=== PATIENT | male | born 1990 | race Caucasian/White ===

== ENCOUNTER 2017-04-17 01:47 | Emergency (ER) | payer OTHER ==
[2017-04-17 01:56] VITALS: RESP 16
[2017-04-17] MEDS ORDERED: methylPREDNISolone SOD SUCCI 125 MG/2 ML VIAL IM ONE (03:48)
[2017-04-17] MEDS ORDERED: COLCHICINE 0.6 MG TAB PO STA (03:52)
--- NOTE | 2017-04-17 03:53 | ED ---
Extremity Problem HPI - General Chief complaint: Extremity Problem,Nontraumatic Stated complaint: foot pain Time Seen by Provider: 04/17/17 02:48 Source: patient, RN notes reviewed Mode of arrival: wheelchair Limitations: no limitations - History of Present Illness Initial comments: Patient is a 26-year-old male presents emergency room for evaluation of right great toe pain. 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 Patient states his feet usually cause him pain. Patient states during the day yesterday began having increasing pain at his right MTP joint of his foot. Patient states it appears swollen and red. Patient denies chills. Patient denies pain radiating up his foot. Patient denies any foot swelling or redness. Patient does admit to alcohol use. Patient denies any changes in diet. Patient denies history of gout. Patient denies any significant injury to his great toe. - Related Data Home Medications Medication Instructions Recorded Confirmed Albuterol Sulfate [Ventolin HFA] 2 puff INHALATION RT-Q6H PRN 06/23/16 06/29/16 Previous Rx's Medication Instructions Recorded Azithromycin [Zithromax Z-pack] 250 mg PO DIRECTED #6 tab 06/29/16 Albuterol Inhaler [Ventolin Hfa 1 - 2 puff INHALATION Q6HR PRN #1 07/02/16 Inhaler] inhaler Acetaminophen with Codeine 1 tab PO Q4H PRN #12 tab 04/17/17 [Tylenol w/codeine #3] Colchicine [Colcrys] 0.6 mg PO DAILY #10 tablet 04/17/17 Allergies Allergy/AdvReac Type Severity Reaction Status Date / Time venom-honey bee Allergy Swelling Verified 04/17/17 01:56 [bee venom (honey bee)] Review of Systems ROS Statement: Those systems with pertinent positive or pertinent negative responses have been documented in the HPI. ROS Other: All systems not noted in ROS Statement are negative. Past Medical History Past Medical History: No Reported History, Asthma Additional Past Medical History / Comment(s): Migraines; Dizziness History of Any Multi-Drug Resistant Organisms: None Reported Past Surgical History: No Surgical Hx Reported Past Psychological History: No Psychological Hx Reported Smoking Status: Current every day smoker Past Alcohol Use History: None Reported, Occasional Past Drug Use History: None Reported General Exam - General Exam Comments Initial Comments: sitting in exam room, no acute distress. Limitations: no limitations General appearance: alert, in no apparent distress Head exam: Present: atraumatic, normocephalic, normal inspection Eye exam: Present: normal appearance ENT exam: Present: normal exam Neck exam: Present: normal inspection Respiratory exam: Absent: respiratory distress Right Foot/Toe exam: Present: tenderness (swelling and tenderness on palpating over her MTP joint.) Neurovascular tendon exam: Present: no vascular compromise. Absent: pulse deficit (2+ dorsal pedal and posterior tibial pulses), abnormal cap refill ( capillary refill less than 2 seconds) Back exam: Present: normal inspection Neurological exam: Present: alert, oriented X3, CN II-XII intact Psychiatric exam: Present: normal affect, normal mood Skin exam: Present: warm, dry, intact, normal color. Absent: rash Course Vital Signs 04/17/17 04/17/17 01:52 04:23 Temperature 100.2 F H 97.6 F Pulse Rate 69 67 Respiratory 16 16 Rate Blood Pressure 146/79 123/62 O2 Sat by Pulse 98 98 Oximetry Medical Decision Making - Medical Decision Making Patient is a 26-year-old male presents emergency room for evaluation of right great toe pain. Symptoms consistent with gout. Patient be placed on colchicine and pain medications and advised to follow-up with either primary care provider or nitrocellulose operator. Patient states he understands everything that was discussed with him. Return parameters discussed. Case discussed Dr. Naqvi. 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 Please follow up with primary care provider in 1-2 days for reevaluation. If any new symptom arises or symptoms worsen, return to ER as soon as possible. Prescriptions: Acetaminophen with Codeine [Tylenol w/codeine #3] 1 tab PO Q4H PRN #12 tab PRN Reason: Pain Colchicine [Colcrys] 0.6 mg PO DAILY #10 tablet Referrals: None,Stated [Primary Care Provider] - 1-2 days Time of Disposition: 03:50
--- NOTE | 2017-04-17 04:17 | XR ---
PROCEDURE: FILM RIGHT FOOT HISTORY: 26-year-old male with right foot. COMPARISON: None TECHNIQUE: Frontal, lateral, and oblique views of the right foot were obtained. FINDINGS: Bony structures are intact. Joint spaces are preserved. Soft tissues are within normal limits. IMPRESSION: Unremarkable views of the right foot.
[2017-04-17 04:24] VITALS: BP 123/62; PULSE 67; TEMP 97.6
== END 2017-04-17 04:23 | disposition home or self-care (01) ==
LOC: EC 01:47
DX: M10.9 Gout, unspecified (principal); F17.200 Nicotine dependence, unspecified, uncomplicated; Z91.030 Bee allergy status
CPT/HCPCS: 73630; 99283; 96372; J2930

== ENCOUNTER 2017-07-17 16:48 | Emergency (ER) | payer OTHER ==
[2017-07-17] MEDS ORDERED: IPRATROPIUM-ALBUTEROL 3 ML NEB INHALATION STA (18:29)
[2017-07-17] MEDS ORDERED: DEXAMETHASONE SOD PHOSPHATE 10 MG/ML 1 ML VIAL IM STA (18:29)
--- NOTE | 2017-07-17 18:37 | ED ---
General Adult HPI - General Chief complaint: Upper Respiratory Infection Stated complaint: chest pain/dizziness Time Seen by Provider: 07/17/17 18:11 Source: patient Mode of arrival: ambulatory Limitations: no limitations - History of Present Illness Initial comments: Adonis is a 26-year-old male with a past medical history of asthma who presents to the emergency department for evaluation of sinus congestion, cough and wheezing. Patient reports that for the past 2 days he's been experiencing sinus congestion, runny and stuffy nose, sore throat, mildly productive cough and wheezing. He reports that he no longer has an albuterol inhaler because he has not seen a doctor in a number of years. He reports he feels similar to having asthma attacks in the past. Patient states that his mother has always made his doctor's appointments, however she and he stated he does not know how to get a doctor's appointment or get prescription so he came to the emergency department. Symptoms began 2 days ago. He can't identify any exacerbating or relieving factors to the congestion though he does feel short of breath with activity which improved somewhat with rest however this has been progressively worsening over 2 days. He has not tried any [id number] medications or prescriptions at home. He describes his cough is productive of yellowish-green sputum, he has no history of pneumonia in the past. Patient has no known cardiac history, no history of hypertension. He is currently a smoker. - Related Data Previous Rx's Medication Instructions Recorded Albuterol Inhaler [Ventolin Hfa 1 - 2 puff INHALATION Q6HR PRN #1 07/17/17 Inhaler] inhaler methylPREDNISolone Dose Pack 4 mg PO DIRECTED #21 package 07/17/17 [Medrol Dose Pack] Allergies Allergy/AdvReac Type Severity Reaction Status Date / Time venom-honey bee Allergy Swelling Verified 07/17/17 19:26 [bee venom (honey bee)] Review of Systems ROS Statement: Those systems with pertinent positive or pertinent negative responses have been documented in the HPI. ROS Other: All systems not noted in ROS Statement are negative. Constitutional: Denies: fever, chills Eyes: Denies: vision change ENT: Reports: ear pain, throat pain, congestion. Denies: hearing loss, epistaxis Respiratory: Reports: cough, dyspnea, wheezes Cardiovascular: Reports: dyspnea on exertion. Denies: palpitations Endocrine: Reports: fatigue Gastrointestinal: Denies: abdominal pain, nausea, vomiting Genitourinary: Denies: urgency, dysuria Musculoskeletal: Denies: back pain Skin: Denies: rash Neurological: Denies: headache, weakness Psychiatric: Denies: anxiety, depression Hematological/Lymphatic: Denies: easy bleeding, easy bruising Past Medical History Past Medical History: No Reported History, Asthma Additional Past Medical History / Comment(s): Migraines; Dizziness History of Any Multi-Drug Resistant Organisms: None Reported Past Surgical History: No Surgical Hx Reported Past Psychological History: No Psychological Hx Reported Smoking Status: Current every day smoker Past Alcohol Use History: None Reported, Occasional Past Drug Use History: None Reported General Exam Limitations: no limitations General appearance: alert, in no apparent distress Head exam: Present: atraumatic, normocephalic Eye exam: Present: normal appearance, PERRL. Absent: conjunctival injection ENT exam: Present: normal exam, normal oropharynx, mucous membranes moist, TM's normal bilaterally, normal external ear exam Neck exam: Present: normal inspection, full ROM. Absent: tenderness, meningismus, lymphadenopathy, thyromegaly Respiratory exam: Present: wheezes Cardiovascular Exam: Present: regular rate, normal rhythm. Absent: irregular rhythm, systolic murmur, diastolic murmur GI/Abdominal exam: Present: soft. Absent: distended, tenderness Rectal exam: Present: deferred Extremities exam: Present: normal inspection, full ROM, normal capillary refill. Absent: tenderness, pedal edema, joint swelling, calf tenderness Back exam: Present: normal inspection Course Vital Signs 07/17/17 07/17/17 07/17/17 17:17 18:54 19:06 Temperature 97.3 F L Pulse Rate 78 72 76 Respiratory 18 Rate Blood Pressure 108/59 O2 Sat by Pulse 97 Oximetry 07/17/17 07/17/17 19:09 20:16 Temperature 98.3 F 98.2 F Pulse Rate 89 62 Respiratory 20 16 Rate Blood Pressure 131/75 O2 Sat by Pulse 97 98 Oximetry EKG Findings - EKG Comments: EKG Findings:: EKG at 1721 - EKG rate 72, rhythm is sinus, there is no acute ST elevations or depressions. Noted to have large P waves as well as S1 every 3 T3 pattern consistent with pulmonary disease. No acute ischemia or infarction. Medical Decision Making - Medical Decision Making Patient was seen and examined Patient laying comfortably in the ER bed upon initial evaluation vital signs were reviewed, no SIRS criteria History and physical exam are concerning for asthma exacerbation likely related to a viral URI Patient with no exertional chest pain, he does have pleuritic chest pain upon coughing DuoNeb was ordered for wheezing EKG and 2 view chest x-ray were ordered to evaluate for possible pneumonia EKG concerning for acute right heart strain versus chronic lung disease will pursue a full workup Chest x-ray with no acute findings Labs reveal a normal d-dimer, negative troponin, normal BNP CBC and BMP unremarkable All results were discussed with patient. I advised the patient that he likely has a viral upper respiratory tract infection which is exacerbating his chronic asthma. I will discharge him home with a albuterol MDI as well as referral to primary care physician so that he can establish care. - Lab Data Result diagrams: 07/17/17 19:05 07/17/17 19:05 Lab Results 07/17/17 07/17/17 07/17/17 Range/Units 19:05 19:05 19:05 WBC 6.6 (3.8-10.6) k/uL RBC 5.04 (4.30-5.90) m/uL Hgb 14.9 (13.0-17.5) gm/dL Hct 43.8 (39.0-53.0) % MCV 86.8 (80.0-100.0) fL MCH 29.5 (25.0-35.0) pg MCHC 34.0 (31.0-37.0) g/dL RDW 14.2 (11.5-15.5) % Plt Count 204 (150-450) k/uL Neutrophils % 58 % Lymphocytes % 33 % Monocytes % 5 % Eosinophils % 2 % Basophils % 1 % Neutrophils # 3.8 (1.3-7.7) k/uL Lymphocytes # 2.2 (1.0-4.8) k/uL Monocytes # 0.4 (0-1.0) k/uL Eosinophils # 0.1 (0-0.7) k/uL Basophils # 0.0 (0-0.2) k/uL PT 11.0 (9.0-12.0) sec INR 1.1 (<1.2) APTT 26.5 (22.0-30.0) sec D-Dimer <0.17 (<0.60) mg/L FEU Sodium 140 (137-145) mmol/L Potassium 4.5 (3.5-5.1) mmol/L Chloride 104 (98-107) mmol/L Carbon Dioxide 25 (22-30) mmol/L Anion Gap 11 mmol/L BUN 16 (9-20) mg/dL Creatinine 0.97 (0.66-1.25) mg/dL Est GFR (MDRD) Af Amer >60 (>60 ml/min/1.73 sqM) Est GFR (MDRD) Non-Af >60 (>60 ml/min/1.73 sqM) Glucose 85 (74-99) mg/dL Calcium 10.0 (8.4-10.2) mg/dL Troponin I (0.000-0.034) ng/mL NT-Pro-B Natriuret Pep pg/mL 07/17/17 07/17/17 Range/Units 19:05 19:05 WBC (3.8-10.6) k/uL RBC (4.30-5.90) m/uL Hgb (13.0-17.5) gm/dL Hct (39.0-53.0) % MCV (80.0-100.0) fL MCH (25.0-35.0) pg MCHC (31.0-37.0) g/dL RDW (11.5-15.5) % Plt Count (150-450) k/uL Neutrophils % % Lymphocytes % % Monocytes % % Eosinophils % % Basophils % % Neutrophils # (1.3-7.7) k/uL Lymphocytes # (1.0-4.8) k/uL Monocytes # (0-1.0) k/uL Eosinophils # (0-0.7) k/uL Basophils # (0-0.2) k/uL PT (9.0-12.0) sec INR (<1.2) APTT (22.0-30.0) sec D-Dimer (<0.60) mg/L FEU Sodium (137-145) mmol/L Potassium (3.5-5.1) mmol/L Chloride (98-107) mmol/L Carbon Dioxide (22-30) mmol/L Anion Gap mmol/L BUN (9-20) mg/dL Creatinine (0.66-1.25) mg/dL Est GFR (MDRD) Af Amer (>60 ml/min/1.73 sqM) Est GFR (MDRD) Non-Af (>60 ml/min/1.73 sqM) Glucose (74-99) mg/dL Calcium (8.4-10.2) mg/dL Troponin I <0.012 (0.000-0.034) ng/mL NT-Pro-B Natriuret Pep 36 pg/mL Disposition Clinical Impression: URI (upper respiratory infection), Asthmatic bronchitis Disposition: HOME SELF-CARE Condition: Good Instructions: Upper Respiratory Infection (ED) Prescriptions: Albuterol Inhaler [Ventolin Hfa Inhaler] 1 - 2 puff INHALATION Q6HR PRN #1 inhaler PRN Reason: Bronchospasm methylPREDNISolone Dose Pack [Medrol Dose Pack] 4 mg PO DIRECTED #21 package Referrals: None,Stated [Primary Care Provider] - 1-2 days Josesito Urbano MD [REFERRING] - 1-2 days
[2017-07-17] MEDS ORDERED: SODIUM CHLORIDE 0.9% 1,000 ML IV STA (18:43)
--- NOTE | 2017-07-17 19:20 | XR ---
EXAMINATION TYPE: XR chest 2V DATE OF EXAM: 07/17/2017 COMPARISON: 07/01/2016 HISTORY: Chest pain TECHNIQUE: Frontal and lateral views of the chest are obtained. FINDINGS: There is no focal air space opacity. No evidence for pneumothorax. No pleural effusion. The cardiac silhouette size is within normal limits. The osseous structures are grossly intact. IMPRESSION: 1. No acute cardiopulmonary process.
[2017-07-17 19:28] LABS: Anion Gap 11 mmol/L; Blood Urea Nitrogen 16 mg/dL (9-20); Carbon Dioxide 25 mmol/L (22-30); Chloride 104 mmol/L (98-107); Glucose 85 mg/dL (74-99); Non-African American GFR(MDRD) >60 (>60 ml/min/1.73 sqM); Potassium 4.5 mmol/L (3.5-5.1); Sodium 140 mmol/L (137-145)
[2017-07-17 19:29] LABS: Basophils % (A) 1 %; CH 30.2; Eosinophils # (A) 0.1 k/uL (0-0.7); Eosinophils % (A) 2 %; HCT 43.8 % (39.0-53.0); HDW 2.45; HGB 14.9 gm/dL (13.0-17.5); Luc # (Auto) 0.08; Luc % (Auto) 1; Lymphocytes # (A) 2.2 k/uL (1.0-4.8); Lymphocytes % (A) 33 %; MCH 29.5 pg (25.0-35.0); MCV 86.8 fL (80.0-100.0); Mean Platelet Volume 7.5; Monocytes # (A) 0.4 k/uL (0-1.0); Monocytes % (A) 5 %; Neutrophils # (A) 3.8 k/uL (1.3-7.7); Neutrophils % (A) 58 %; RBC 5.04 m/uL (4.30-5.90); RDW 14.2 % (11.5-15.5); WBC 6.6 k/uL (3.8-10.6); WBC (Perox) 6.66
[2017-07-17 19:39] LABS: INR 1.1 (<1.2); Partial Thromboplastin Time 26.5 sec (22.0-30.0)
[2017-07-17 20:16] VITALS: RESP 16; TEMP 98.2
[2017-07-17 20:42] VITALS: BP 131/75; PULSE 62
== END 2017-07-17 20:42 | disposition home or self-care (01) ==
LOC: EC 16:48
DX: J45.909 Unspecified asthma, uncomplicated (principal); J06.9 Acute upper respiratory infection, unspecified; F17.200 Nicotine dependence, unspecified, uncomplicated; Z91.030 Bee allergy status
CPT/HCPCS: 36415; 94640; 93005; 85379; 83880; 80048; 84484; 85025; 85610; 85730; 71020; 99284; 96360; 96372; J1100

== ENCOUNTER 2018-07-30 22:27 | Emergency (ER) | payer OTHER ==
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
[2018-07-30] MEDS ORDERED: METOCLOPRAMIDE 5 MG/ML 2 ML VIAL IM STA (23:58)
[2018-07-30] MEDS ORDERED: KETOROLAC 30 MG/ML 1 ML VIAL IM STA (23:58)
[2018-07-30] MEDS ORDERED: diphenhydrAMINE 50 MG CAP PO STA (23:58)
--- NOTE | 2018-07-31 00:42 | XR ---
EXAMINATION TYPE: XR shoulder complete LT DATE OF EXAM: 07/31/2018 COMPARISON: NONE HISTORY: Shoulder pain TECHNIQUE: 3 views FINDINGS: I see no fracture nor dislocation. Joint spaces are normal. There are no pathologic calcifi cations. IMPRESSION: Negative left shoulder exam.
[2018-07-31 01:43] VITALS: BP 125/72; PULSE 76; RESP 16; TEMP 97.9
== END 2018-07-31 01:43 | disposition home or self-care (01) ==
LOC: EC 22:27
DX: H11.32 Conjunctival hemorrhage, left eye (principal); S46.912A Strain of unspecified muscle, fascia and tendon at shoulder and upper arm level, left arm, initial encounter; G43.909 Migraine, unspecified, not intractable, without status migrainosus; F17.200 Nicotine dependence, unspecified, uncomplicated; Z91.030 Bee allergy status; Z79.899 Other long term (current) drug therapy; W03.XXXA Other fall on same level due to collision with another person, initial encounter; W22.8XXA Striking against or struck by other objects, initial encounter
CPT/HCPCS: 73030; 99284; 96372 ×2; J2765; J1885

== ENCOUNTER → 2018-08-29 | Outpatient (CLI) | payer OTHER ==
--- NOTE | 2018-08-29 23:26 | MR ---
EXAMINATION TYPE: MR shoulder LT wo con DATE OF EXAM: 08/29/2018 COMPARISON: HISTORY: Left shoulder pain x2.5 months, painful to raise left arm over head TECHNIQUE: Multiplanar, multisequence imaging of the left shoulder is performed without contrast. FINDINGS: The subscapularis tendon is intact. Biceps tendon is intact. There is minute shoulder joint effusion. The glenoid karuna appear intact. Glenohumeral joint space is fairly normal. AC joint is intact. Ther e is no subacromial impingement. There is vertical defect through the supraspinatus tendon on the sag ittal images anteriorly and posteriorly. There is no retraction.. I see no bony destructive process. There is no evidence of a fracture. There is no evidence of a soft tissue mass. IMPRESSION: Small shoulder joint effusion. The sagittal images appear to show vertical tear and defects defects i n the supraspinatus tendon without any retraction.
== END ==
LOC: RADMRIMAIN 19:49
PROVIDERS: ATTEND Internal Medicine
DX: M25.421 Effusion, right elbow (principal)

== ENCOUNTER 2023-03-11 15:17 | Emergency (ER) | payer OTHER ==
[2023-03-11 15:31] VITALS: RESP 16
--- NOTE | 2023-03-11 16:53 | ED ---
Male Urogenital HPI - General Chief complaint: Urogenital Stated complaint: CHECKUP Time Seen by Provider: 03/11/23 16:17 Source: patient, RN notes reviewed Mode of arrival: ambulatory Limitations: no limitations - History of Present Illness Initial comments: This is a 32-year-old male who presents to the emergency department for HIV testing. States that his girlfriend's mother works as a nurse, and they got information that one of them may have HIV. Patient declines the need for any other STD testing. Denies any dysuria, discharge, pain, or lesions to the genitalia. To his knowledge, he has never been exposed to HIV. Denies any fevers, chills, sore throat, cough, dyspnea, chest pain, palpitations, abdominal pain, nausea, vomiting, diarrhea, back pain, or headaches. - Related Data Home Medications Medication Instructions Recorded Confirmed Acetaminophen [Tylenol] 100 mg PO Q4-6H PRN 07/30/18 07/30/18 Albuterol Inhaler [Ventolin Hfa 1 - 2 puff INHALATION RT-Q6H PRN 07/30/18 07/30/18 Inhaler] Ibuprofen [Motrin Ib] 600 mg PO Q6H PRN 07/30/18 07/30/18 Naphazoline HCl/Glycerin [Clear 1 drop BOTH EYES DAILY 07/30/18 07/30/18 Eyes Max Redness Rlf Drp] Previous Rx's Medication Instructions Recorded Ibuprofen [Motrin] 600 mg PO Q8HR PRN #30 tab 07/31/18 Allergies Allergy/AdvReac Type Severity Reaction Status Date / Time venom-honey bee Allergy Swelling Verified 07/30/18 22:40 [bee venom (honey bee)] Review of Systems ROS Statement: Those systems with pertinent positive or pertinent negative responses have been documented in the HPI. ROS Other: All systems not noted in ROS Statement are negative. Past Medical History Past Medical History: No Reported History, Asthma Additional Past Medical History / Comment(s): Migraines; Dizziness History of Any Multi-Drug Resistant Organisms: None Reported Past Surgical History: No Surgical Hx Reported Past Psychological History: No Psychological Hx Reported Past Alcohol Use History: None Reported, Occasional Past Drug Use History: None Reported General Exam Limitations: no limitations General appearance: alert, in no apparent distress Head exam: Present: atraumatic, normocephalic, normal inspection Respiratory exam: Present: normal lung sounds bilaterally. Absent: respiratory distress, wheezes, rales, rhonchi, stridor Cardiovascular Exam: Present: regular rate, normal rhythm, normal heart sounds. Absent: systolic murmur, diastolic murmur, rubs, gallop, clicks Neurological exam: Present: alert, oriented X3, CN II-XII intact Psychiatric exam: Present: normal affect, normal mood Skin exam: Present: warm, dry, intact, normal color. Absent: rash Course Vital Signs 03/11/23 03/11/23 15:30 17:58 Temperature 98.1 F 97.8 F Pulse Rate 95 92 Respiratory 16 16 Rate Blood Pressure 114/65 112/68 O2 Sat by Pulse 98 98 Oximetry Medical Decision Making - Medical Decision Making This is a 32-year-old male who presents to the emergency department for HIV testing. Was pt. sent in by a medical professional or institution? @ -No Did you speak to anyone other than the patient for history? @ -No Did you review nursing and triage notes? @ -Yes, and I agree, it is accurate with regards to the patient's symptoms. Were old charts reviewed? @ -No Differential Diagnosis? @ -Not applicable What testing was considered but not performed? (CT, X-rays, U/S, labs)? Why? @ -None What meds were considered but not given? Why? @ -None Did you discuss the management of the patient with other professionals? @ -No Did you reconcile home meds? @ -No Was smoking cessation discussed for >3mins.? @ -No Was critical care preformed (if so, how long)? @ -No Were there social determinants of health that impacted care today? How? (Homelessness, low income, unemployed, alcoholism, drug addiction, transportation, low edu. Level, literacy, decrease access to med. care, fdc, rehab)? @ -No Was there de-escalation of care discussed even if they declined? (Discuss DNR or withdrawal of care, Hospice)? @ -No What co-morbidities impacted this encounter? (DM, HTN, Smoking, COPD, CAD, Cancer, CVA, Hep., AIDS, mental health diagnosis, sleep apnea, morbid obesity)? @ -None Was patient admitted / discharged? @ -Discharged. HIV testing obtained per the patient's request. Advised that this will take a couple of days for the results to return. Patient declined the need for any additional STD testing. Recommended he and his girlfriend avoid sexual intercourse until results return. Undiagnosed new problem with uncertain prognosis? @ -None Drug Therapy requiring intensive monitoring for toxicity (Heparin, Nitro, Insulin, Cardizem)? @ -None Were any procedures done? @ -None Diagnosis/symptom? @ -Encounter for HIV testing Acute, or Chronic, or Acute on Chronic? @ -Acute Uncomplicated (without systemic symptoms) or Complicated (systemic symptoms)? @ -Uncomplicated Side effects of treatment? @ -None Exacerbation, Progression, or Severe Exacerbation] @ -Not applicable Poses a threat to life or bodily function? @ -No Return precautions reviewed in depth, the patient is instructed to return to the emergency department with any new, worsening, or concerning symptoms. Patient verbalized understanding. This case was discussed in detail with the attending ED physician, Dr. Ferrell. Presentation, findings, and treatment plan discussed in detail as well. Disposition Clinical Impression: Encounter for HIV (human immunodeficiency virus) test Disposition: HOME SELF-CARE Instructions (If sedation given, give patient instructions): Sexually Transmitted Diseases (ED) Additional Instructions: Return to the emergency department with any new, worsening, or concerning symptoms. It will take a couple of days to receive the results of the test. You will be contacted when the results return. Is patient prescribed a controlled substance at d/c from ED?: No Referrals: Josesito Urbano MD [REFERRING] - 1-2 days
[2023-03-11 18:00] VITALS: BP 112/68; PULSE 92; TEMP 97.8
[2023-03-12 16:35] LABS: HIV 2 AB Non-Reactive (Non-Reactive); HIV AB P24 Non-Reactive (Non-Reactive); HIV P24 AG Non-Reactive (Non-Reactive)
== END 2023-03-11 17:17 | disposition home or self-care (01) ==
LOC: EC 15:17
DX: Z11.4 Encounter for screening for human immunodeficiency virus [HIV] (principal); J45.909 Unspecified asthma, uncomplicated; Z79.899 Other long term (current) drug therapy; Z91.030 Bee allergy status
CPT/HCPCS: 36415; 87390

== ENCOUNTER 2023-08-09 12:37 | Inpatient (IN) | payer MEDICAID, OTHER ==
--- NOTE | 2023-08-09 13:08 | ED ---
Psych HPI - General Source: patient, RN notes reviewed Mode of arrival: ambulatory Limitations: no limitations - History of Present Illness MD Complaint: suicidal ideation <Simran Hayes - Last Filed: 08/09/23 13:06> - General Source: patient, RN notes reviewed Mode of arrival: ambulatory Limitations: no limitations <Artie Mac - Last Filed: 08/09/23 18:58> - General Chief Complaint: Psychiatric Symptoms Stated Complaint: Mental Health Time Seen by Provider: 08/09/23 13:06 - History of Present Illness Initial Comments: This is a 32 year old male who presents to the emergency department for psychiatric evaluation. Reports increasing depression with suicidal ideation and plan to overdose on medication. Denies any homicidal ideations. (Simran Hayes) Patient is a pleasant 32-year-old male presenting to the emergency department for mental health evaluation. Patient states ran out of medications around 8 days ago. Patient does have depression and anxiety. Patient did have thoughts of self-harm. No homicidal thoughts. No alcohol or street drugs. No new physical complaints. (Artie Mac) - Related Data Home Medications Medication Instructions Recorded Confirmed Albuterol Inhaler [Ventolin Hfa 1 - 2 puff INHALATION RT-Q6H PRN 07/30/18 08/09/23 Inhaler] FLUoxetine HCL [Prozac] 40 mg PO HS 08/09/23 08/09/23 OLANZapine [ZyPREXA] 15 mg PO HS 08/09/23 08/09/23 OLANZapine/FLUOXETINE HCL [Symbyax 1 cap PO HS 08/09/23 08/09/23 6-25 mg Capsule] hydrOXYzine pamoate [Vistaril] 25 - 50 mg PO TID PRN 08/09/23 08/09/23 traZODone HCL [Desyrel] 50 mg PO HS PRN 08/09/23 08/09/23 Allergies Allergy/AdvReac Type Severity Reaction Status Date / Time venom-honey bee Allergy Swelling Verified 08/09/23 14:40 [bee venom (honey bee)] Review of Systems ROS Other: All systems not noted in ROS Statement are negative. <Simran Hayes - Last Filed: 08/09/23 13:06> ROS Other: All systems not noted in ROS Statement are negative. Constitutional: Denies: fever Eyes: Denies: eye pain ENT: Denies: ear pain Respiratory: Denies: cough Cardiovascular: Denies: chest pain Endocrine: Denies: fatigue Gastrointestinal: Denies: abdominal pain Psychiatric: Reports: as per HPI, anxiety, depression <Artie Mac - Last Filed: 08/09/23 18:58> ROS Statement: Those systems with pertinent positive or pertinent negative responses have been documented in the HPI. Past Medical History Past Medical History: No Reported History, Asthma Additional Past Medical History / Comment(s): Migraines; Dizziness History of Any Multi-Drug Resistant Organisms: None Reported Past Surgical History: No Surgical Hx Reported Past Psychological History: No Psychological Hx Reported Past Alcohol Use History: None Reported, Occasional Past Drug Use History: None Reported <Simran Hayes - Last Filed: 08/09/23 13:06> General Exam <Simran Hayes - Last Filed: 08/09/23 13:06> Limitations: no limitations General appearance: alert, in no apparent distress, other (Patient rocking in the bed) Head exam: Present: atraumatic Eye exam: Present: normal appearance Neck exam: Present: normal inspection Respiratory exam: Present: normal lung sounds bilaterally Cardiovascular Exam: Present: regular rate, normal rhythm GI/Abdominal exam: Present: soft. Absent: tenderness Extremities exam: Present: normal inspection Neurological exam: Present: alert Psychiatric exam: Present: anxious Skin exam: Present: normal color <Artie Mac - Last Filed: 08/09/23 18:58> - General Exam Comments Initial Comments: Visual Physical Exam Vital signs reviewed General: Well-appearing, nontoxic, no acute distress. Head: Normocephalic, atraumatic Eyes: PERRLA, EOMI ENT: Airway patent Chest: Nonlabored breathing Skin: No visual rash, normal skin tone Neuro: Alert and oriented 3 Musculoskeletal: No gross abnormalities I performed the QuickNote portion of this chart. Signed Simran Hayes PA-C. (Simran Hayes) Course Vital Signs 08/09/23 13:05 Temperature 97.5 F L Pulse Rate 67 Respiratory 16 Rate Blood Pressure 105/68 O2 Sat by Pulse 99 Oximetry Medical Decision Making <Artie Mac Last Filed: 08/09/23 18:58> - Medical Decision Making Was pt. sent in by a medical professional or institution (Dr., PA, HAIRSPRING ASSEMBLER, urgent care, hospital, or correction...) When possible be specific @ -No Did you speak to anyone other than the patient for history (EMS, parent, family, police, friend...)? What history was obtained from this source @ -No Did you review nursing and triage notes (agree or disagree)? Why? @ -I reviewed and agree with nursing and triage notes Were old charts reviewed (outside hosp., previous admission, EMS record, old EKG, old radiological studies, urgent care reports/EKG's, correction records)? Report findings @ -No old charts were reviewed Differential Diagnosis (chest pain, altered mental status, abdominal pain women, abdominal pain men, vaginal bleeding, weakness, fever, dyspnea, syncope, headache, dizziness, GI bleed, back pain, seizure, CVA, palpatations, mental health, musculoskeletal)? @ -Differential Mental Health Depression, anxiety, bipolar, psychosis, schizophrenia, borderline personality, situational depression, adjustment disorder, behavioral disorder, brain tumor, malingering, substance abuse, encephalopathy, medication reaction, dementia, hypothyroidism, degenerative neurologic disorder, lupus.... This is not meant to be all-inclusive list EKG interpreted by me (3pts min.). @ -As above X-rays interpreted by me (1pt min.). @ -None done CT interpreted by me (1pt min.). @ -None done U/S interpreted by me (1pt. min.). @ -None done What testing was considered but not performed or refused? (CT, X-rays, U/S, labs)? Why? @ -None What meds were considered but not given or refused? Why? @ -None Did you discuss the management of the patient with other professionals (professionals i.e. MALAIKA Ling, HAIRSPRING ASSEMBLER, lab, RT, psych nurse, social research assistant, oracle sql developer, teacher, surveillance officer, gearcase assembler)? Give summary @ -Patient was seen by mental health services with plans for admission. Was smoking cessation discussed for >3mins.? @ -No Was critical care preformed (if so, how long)? @ -No Were there social determinants of health that impacted care today? How? (Homelessness, low income, unemployed, alcoholism, drug addiction, transportation, low edu. Level, literacy, decrease access to med. care, [facility], rehab)? @ -No Was there de-escalation of care discussed even if they declined (Discuss DNR or withdrawal of care, Hospice)? DNR status @ -No What co-morbidities impacted this encounter? (DM, HTN, Smoking, COPD, CAD, Cancer, CVA, ARF, Chemo, Hep., AIDS, mental health diagnosis, sleep apnea, morbid obesity)? @ -None Was patient admitted / discharged? Hospital course, mention meds given and route, prescriptions, significant lab abnormalities, going to OR and other pertinent info. @ -Patient will be admitted for mental health services Undiagnosed new problem with uncertain prognosis? @ -No Drug Therapy requiring intensive monitoring for toxicity (Heparin, Nitro, Insulin, Cardizem)? @ -No Were any procedures done? @ -No Diagnosis/symptom? @ -Depression, suicidal ideation Acute, or Chronic, or Acute on Chronic? @ -Acute, acute Uncomplicated (without systemic symptoms) or Complicated (systemic symptoms)? @ -default Side effects of treatment? @ -No Exacerbation, Progression, or Severe Exacerbation? @ -No Poses a threat to life or bodily function? How? (Chest pain, [place], [place], pneumonia, PE, COPD, DKA, ARF, appy, cholecystitis, CVA, Diverticulitis, Homicidal, Suicidal, threat to staff... and all critical care pts) @ -No (Artie Mac) - Lab Data Lab Results 08/09/23 08/09/23 Range/Units 15:16 18:32 Urine Opiates Screen Not Detected (NotDetected) Ur Oxycodone Screen Not Detected (NotDetected) Urine Methadone Screen Not Detected (NotDetected) Ur Propoxyphene Screen Not Detected (NotDetected) Ur Barbiturates Screen Not Detected (NotDetected) U Tricyclic Antidepress Not Detected (NotDetected) Ur Phencyclidine Scrn Not Detected (NotDetected) Ur Amphetamines Screen Not Detected (NotDetected) U Methamphetamines Scrn Not Detected (NotDetected) U Benzodiazepines Scrn Not Detected (NotDetected) Urine Cocaine Screen Not Detected (NotDetected) U Marijuana (THC) Screen Detected H (NotDetected) Coronavirus (PCR) Not Detected (Not Detectd) Disposition <Simran Hayes - Last Filed: 08/09/23 13:06> Is patient prescribed a controlled substance at d/c from ED?: No Time of Disposition: 18:58 <Artie Mac - Last Filed: 08/09/23 18:58> Clinical Impression: Depression, Suicidal ideation Disposition: TRANSFER TO PSYCH HOSP/UNIT Referrals: None,Stated [Primary Care Provider] - 1-2 days
[2023-08-09 16:08] LABS: Cocaine Screen,Urine Not Detected (NotDetected); Phencyclidine Screen,Urine Not Detected (NotDetected); Urn Cannabinoid Scrn Detected (NotDetected)
[2023-08-09 16:09] LABS: Amphetamine Screen,Urine Not Detected (NotDetected); Barbiturate Screen,Urine Not Detected (NotDetected); Benzodiazepines Screen,Urine Not Detected (NotDetected); Methadone Screen, Urine Not Detected (NotDetected); Opiate Screen,Urine Not Detected (NotDetected); Oxycodone Screen, Urine Not Detected (NotDetected); Tricyclic Antidepressant,Urine Not Detected (NotDetected)
[2023-08-09] MEDS ORDERED: MAGNESIUM HYDROXIDE 2,400 MG/30 ML CUP PO PRN (21:03)
[2023-08-09] MEDS ORDERED: ACETAMINOPHEN TAB 325 MG TAB PO PRN (21:03)
[2023-08-09 21:43] LABS: Appearance,Urine Clear (Clear); Bilirubin,Urine Negative (Negative); Blood,Urine Negative (Negative); Color,Urine Light Yellow; Glucose,Urine (UA) Negative (Negative); Ketones,Urine Negative (Negative); Leukocyte Esterase,Urine Negative (Negative); Nitrite,Urine Negative (Negative); PH, Urine 6.5 (5.0-8.0); Protein,Urine Negative (Negative); Specific Gravity,Urine 1.019 (1.001-1.035)
[2023-08-09] MEDS: OLANZapine 7.5 MG TAB PO SCH (21:49)
[2023-08-09] MEDS: traZODone HCL 50 MG TAB PO PRN (21:50)
[2023-08-09] MEDS: LORazepam 1 MG TAB PO PRN (21:50)
[2023-08-09] MEDS ORDERED: IBUPROFEN 600 MG TAB PO PRN (22:00)
[2023-08-09] MEDS ORDERED: ALBUTEROL INHALER 60 PUFF/8 GM INHALER (MHU) INHALATION PRN (22:00)
[2023-08-09] MEDS ORDERED: HALOPERIDOL LACTATE 5 MG/ML 1 ML VIAL IM PRN (22:00)
[2023-08-09] MEDS ORDERED: haloperidoL 5 MG TAB PO PRN (22:00)
[2023-08-09] MEDS ORDERED: LORazepam 2 MG/ML INJ IM PRN (22:00)
--- NOTE | 2023-08-10 00:05 | P.CONS ---
History of Present Illness - Reason for Consult Consult date: 08/10/23 - History of Present Illness The patient is a 32-year-old male with a PMH of depression and anxiety had presented to the emergency room with complaints of depression and suicidal ideation. The patient was admitted to the mental health unit where he was seen and evaluated. Patient states he ran out of medications one week ago and that he developed auditory hallucinations afterwards. He had thoughts of self-harm and was planning on overdosing on medications. He denied any physical complaints at the time of interview. Denied experiencing chest discomfort, shortness of breath, fever, chills, cough, nausea, vomiting, abdominal pain, diarrhea. Reports recreational marijuana use. Denied additional illicit substance use, tobacco use, or alcohol use. Review of systems: Pertinent positives and negatives as discussed in HPI, a complete review of systems was performed and all other systems are negative. Physical examination: General: non toxic, no distress, appears at stated age, normal weight Derm: no unusual rashes/lesions, no unusual ecchymoses, warm, dry Head: atraumatic, normocephalic, symmetric Eyes: EOMI, no lid lag, anicteric sclera ENT: Nose and ears atraumatic, no thrush, no pharyngeal erythema Neck: trachea midline, supple Mouth: no lip lesion, mucus membranes moist Cardiovascular: S1S2 reg, no murmur, no edema Lungs: CTA bilateral, no rhonchi, no rales , no accessory muscle use Abdominal: soft, nontender to palpation, no guarding Ext: no gross muscle atrophy, no contractures, Neuro: No gross focal neuro deficits noted Psych: Alert, oriented, appropriate affect Assessment: Marijuana abuse Depression and suicidal ideation Imaging: None performed Data Review: Laboratory evaluation was reviewed with urine toxicology positive for marijuana and UA unremarkable Plan: Advised on importance of cessation for marijuana use Defer management of depression and suicidal ideation to the primary psychiatry service Thank you for allowing us to participate in the care of this patient. We will follow peripherally. Do not hesitate to contact us with questions. Someone can be reached from the [facility] hospitalist group at all hours of the day at [phone]. Past Medical History Past Medical History: No Reported History, Asthma Additional Past Medical History / Comment(s): Migraines; Dizziness History of Any Multi-Drug Resistant Organisms: None Reported Past Surgical History: No Surgical Hx Reported Smoking Status: Vaper Medications and Allergies Home Medications Medication Instructions Recorded Confirmed Type Albuterol Inhaler [Ventolin Hfa 1 - 2 puff INHALATION RT-Q6H PRN 07/30/18 08/09/23 History Inhaler] FLUoxetine HCL [Prozac] 40 mg PO HS 08/09/23 08/09/23 History OLANZapine [ZyPREXA] 15 mg PO HS 08/09/23 08/09/23 History OLANZapine/FLUOXETINE HCL [Symbyax 1 cap PO HS 08/09/23 08/09/23 History 6-25 mg Capsule] hydrOXYzine pamoate [Vistaril] 25 - 50 mg PO TID PRN 08/09/23 08/09/23 History traZODone HCL [Desyrel] 50 mg PO HS PRN 08/09/23 08/09/23 History Allergies Allergy/AdvReac Type Severity Reaction Status Date / Time venom-honey bee Allergy Swelling Verified 08/09/23 14:40 [bee venom (honey bee)] Physical Exam Vitals: Vital Signs Temp Pulse Resp BP Pulse Ox 08/09/23 13:05 97.5 F L 67 16 105/68 99 Intake and Output 08/09/23 08/09/23 08/10/23 14:59 22:59 06:59 Other: Weight 75.75 kg Results Labs: Abnormal Lab Results - Last 24 Hours (Table) 08/09/23 Range/Units 15:16 U Marijuana (THC) Screen Detected H (NotDetected)
[2023-08-10] MEDS: NICOTINE 14MG/24HR PATCH TRANSDERM SCH (09:09)
--- NOTE | 2023-08-10 10:30 | P.HP ---
Psychiatric H&P - . H&P Date: 08/10/23 History & Physical: Allergies Allergy/AdvReac Type Severity Reaction Status Date / Time venom-honey bee Allergy Swelling Verified 08/10/23 00:45 [bee venom (honey bee)] Vital Signs Temp 97.7 F 08/09/23 21:39 Pulse 64 08/09/23 21:39 Resp 18 08/09/23 21:39 BP 127/63 08/09/23 21:39 Pulse Ox 97 08/09/23 21:39 FiO2 Intake & Output 08/09/23 08/10/23 08/10/23 18:59 06:59 18:59 Weight 75.75 kg 75.75 kg Laboratory Last Values Urine Color Light Yellow 08/09/23 21:24 Urine Appearance Clear (Clear) 08/09/23 21:24 Urine pH 6.5 (5.0-8.0) 08/09/23 21:24 Ur Specific Cameron 1.019 (1.001-1.035) 08/09/23 21:24 Urine Protein Negative (Negative) 08/09/23 21:24 Urine Glucose (UA) Negative (Negative) 08/09/23 21:24 Urine Ketones Negative (Negative) 08/09/23 21:24 Urine Blood Negative (Negative) 08/09/23 21:24 Urine Nitrite Negative (Negative) 08/09/23 21:24 Urine Bilirubin Negative (Negative) 08/09/23 21:24 Urine Urobilinogen 2.0 mg/dL (<2.0) 08/09/23 21:24 Ur Leukocyte Esterase Negative (Negative) 08/09/23 21:24 Urine Opiates Screen Not Detected (NotDetected) 08/09/23 15:16 Ur Oxycodone Screen Not Detected (NotDetected) 08/09/23 15:16 Urine Methadone Screen Not Detected (NotDetected) 08/09/23 15:16 Ur Propoxyphene Screen Not Detected (NotDetected) 08/09/23 15:16 Ur Barbiturates Screen Not Detected (NotDetected) 08/09/23 15:16 U Tricyclic Antidepress Not Detected (NotDetected) 08/09/23 15:16 Ur Phencyclidine Scrn Not Detected (NotDetected) 08/09/23 15:16 Ur Amphetamines Screen Not Detected (NotDetected) 08/09/23 15:16 U Methamphetamines Scrn Not Detected (NotDetected) 08/09/23 15:16 U Benzodiazepines Scrn Not Detected (NotDetected) 08/09/23 15:16 Urine Cocaine Screen Not Detected (NotDetected) 08/09/23 15:16 U Marijuana (THC) Screen Detected (NotDetected) H 08/09/23 15:16 Coronavirus (PCR) Not Detected (Not Detectd) 08/09/23 18:32 08/10/23 10:24 This is a psychiatric evaluation on Adonis Wright who is a 32-year-old - [place] male and was hospitalized for suicidal ideations and severe depression Patient is a poor historian at this time continues to be wanting to sleep He responded with few monosyllabic words but otherwise is uninterested in having this conversation Patient will be reattempted to be seen for more details Meantime the further information was obtained from the chart and other resources According to the patient had presented to the physician at [facility] with depression and suicidal ideations Patient carries a diagnoses of bipolar disorder and has chronic issues with depression and anxiety Patient had presented with the mood swings poor sleep and feelings of helplessness and hopelessness psychomotor agitation and irritability and anxiety paranoia and suicidal thoughts and plans She also reports that he was in trouble with the police as he was handed some small packet by someone that he put in his pocket and was not sure what was Patient denies history of any drug use although he is positive for THC He also carries a diagnosis of from amphetamine use disorder severe cocaine use disorder severe alcohol use disorder severe from the past No legal issues been reported at this time Past history personal social history as described above Therapist be significant history of substance use in the past Patient's compliance with treatment and medications is unclear Patient is currently on Prozac 40 mg a day and Zyprexa 50 mg at bedtime Mental status examination: General Appearance: Patient appears to be stated age is sleeping at this time but was arousable Patient however at this time is uninterested in having this conversation and stated that he wanted to sleep He did cooperate with signing some consent forms Behavior: Patient is calmly laying down without any agitated behavior. Speech: Patient's speech is fluent and nonpressured. Mood/Affect: Mood is flat, affect is congruent and blunted. Suicidality/Homicidality: Patient reports no suicidal or homicidal ideation, intention, and/or plan at this time Perceptions: Patient denies any visual hallucinations and denies any auditory hallucinations Though content/process: There is no evidence of any delusional thought content and thought process is linear and goal-directed. Memory and concentration: AOX3, grossly intact for the purposes of this session Judgment and insight: Impaired Assessment Bipolar disorder mixed type Rule out Mood disorder related to poly substance use Polysubstance abuse Cannabis use disorder History of Methamphetamine use disorder History of cocaine use disorder History of alcohol use disorder Plan: -Patient continues to meet criteria for inpatient psychiatric admission for symptom stabilization and safety. Patient has signed adult voluntary form and medication consent and was placed in patient's chart. -Medications: Continue patient on Zyprexa 50 mg at bedtime and Prozac 40 mg daily Further medication intervention will depend on patient's further assessment Discussed effects and side effects of the medication which she appears to understand well -When necessary Haldol and Ativan for agitation/aggression. -NRT - nicotine patch Chin appears to be a good candidate for referral to substance use program and mental health follow-up -SW on board for discharge planning. Encouraged the patient to participate in milieu. Bruce Farmer M.D. 08/10/2023
[2023-08-10 13:35] LABS: Basophils % (A) 1 %; Eosinophils # (A) 0.1 k/uL (0-0.7); Eosinophils % (A) 2 %; HCT 46.9 % (39.0-53.0); HGB 15.3 gm/dL (13.0-17.5); Lymphocytes # (A) 2.1 k/uL (1.0-4.8); Lymphocytes % (A) 53 %; MCH 29.5 pg (25.0-35.0); MCHC 32.7 g/dL (31.0-37.0); MCV 90.1 fL (80.0-100.0); Monocytes # (A) 0.3 k/uL (0-1.0); Monocytes % (A) 7 %; Neutrophils # (A) 1.3 k/uL (1.3-7.7); Neutrophils % (A) 34 %; Platelet Count 235 k/uL (150-450); RBC 5.21 m/uL (4.30-5.90); RDW 13.2 % (11.5-15.5); WBC 3.9 k/uL (3.8-10.6)
[2023-08-10 13:47] LABS: ALT 23 U/L (4-49); AST 30 U/L (17-59); African American GFR (CKD) >90 (>60 ml/min/1.73 sqM); Albumin 4.5 g/dL (3.5-5.0); Alkaline Phosphatase 56 U/L (38-126); Anion Gap 9 mmol/L; Blood Urea Nitrogen 20 mg/dL (9-20); Calcium 9.8 mg/dL (8.4-10.2); Carbon Dioxide 26 mmol/L (22-30); Chloride 101 mmol/L (98-107); Glucose 94 mg/dL (74-99); Non-African American GFR(CKD) 89 (>60 ml/min/1.73 sqM); Potassium 4.8 mmol/L (3.5-5.1); Sodium 136 mmol/L (137-145); Total Bilirubin 0.6 mg/dL (0.2-1.3); Total Protein 7.3 g/dL (6.3-8.2)
[2023-08-10] MEDS: FLUoxetine HCL 20 MG CAP PO SCH (20:33)
[2023-08-10] MEDS: traZODone HCL 50 MG TAB PO PRN (20:33)
[2023-08-10] MEDS: OLANZapine 7.5 MG TAB PO SCH (20:33)
[2023-08-10] MEDS: LORazepam 1 MG TAB PO PRN (21:39)
[2023-08-11 02:36] LABS: Chol/HDL Ratio 3.32 Ratio; LDL Cholesterol,Calculated 90.2 mg/dL (0.0-131.0); VLDL Calculation 18.12 mg/dL (5.00-40.00)
[2023-08-11] MEDS: NICOTINE 14MG/24HR PATCH TRANSDERM SCH (09:08)
--- NOTE | 2023-08-11 10:39 | P.PN ---
Subjective Progress Note Date: 08/11/23 Principal diagnosis: Assessment Bipolar disorder mixed type Rule out Mood disorder related to poly substance use Polysubstance abuse Cannabis use disorder History of Methamphetamine use disorder History of cocaine use disorder History of alcohol use disorder Patient Name: Adonis Wright Date of : 89 Patient Status: Inpatient Attending Provider: Bruce Farmer Date: 08/11/23 Subjective data: The patient was seen in his room where he was laying comfortably Patient states that he does not sleep well and tries to get as much rest as he can He states that his depression however has improved and that he has come from a level of 10 to 5 at this time He denies any suicidal ideations or plans He does admit however that he uses cannabis quite heavily but here stop using the drugs He feels that his current depression was triggered by not taking his medications regularly he is compliant with his medications and denies having any side effects Mental status examination: General Appearance: Patient appears to be stated age is sleeping at this time but was arousable Patient however at this time is uninterested in having this conversation and stated that he wanted to sleep He did cooperate with signing some consent forms Behavior: Patient is calmly laying down without any agitated behavior. Speech: Patient's speech is fluent and nonpressured. Mood/Affect: Mood is flat, affect is congruent and blunted. Suicidality/Homicidality: Patient reports no suicidal or homicidal ideation, intention, and/or plan at this time Perceptions: Patient denies any visual hallucinations and denies any auditory hallucinations Though content/process: There is no evidence of any delusional thought content and thought process is linear and goal-directed. Memory and concentration: AOX3, grossly intact for the purposes of this session Judgment and insight: Impaired Assessment Bipolar disorder mixed type Rule out Mood disorder related to poly substance use Polysubstance abuse Cannabis use disorder History of Methamphetamine use disorder History of cocaine use disorder History of alcohol use disorder Plan: -Patient continues to meet criteria for inpatient psychiatric admission for symptom stabilization and safety. Patient has signed adult voluntary form and medication consent and was placed in patient's chart. -Medications: Continue patient on Zyprexa 50 mg at bedtime and Prozac 40 mg daily No side effects reported Further medication intervention will depend on patient's further assessment Discussed effects and side effects of the medication which she appears to understand well -When necessary Haldol and Ativan for agitation/aggression. -NRT - nicotine patch Chin appears to be a good candidate for referral to substance use program and mental health follow-up -SW on board for discharge planning. Encouraged the patient to participate in milieu. Bruce Farmer M.D. 08/11/2023 Objective - Vital Signs Vital signs: Vital Signs Temp 97.7 F 08/09/23 21:39 Pulse 64 08/09/23 21:39 Resp 18 08/09/23 21:39 BP 127/63 08/09/23 21:39 Pulse Ox 97 08/09/23 21:39 FiO2 - Labs CBC & Chem 7: 08/10/23 13:01 08/10/23 13:01 Labs: Abnormal Lab Results - Last 24 Hours (Table) 08/10/23 Range/Units 13:01 Sodium 136 L (137-145) mmol/L TSH 0.366 L (0.465-4.680) mIU/L
[2023-08-11] MEDS: LORazepam 1 MG TAB PO PRN (13:40)
[2023-08-11] MEDS: FLUoxetine HCL 20 MG CAP PO SCH (20:31)
[2023-08-11] MEDS: OLANZapine 7.5 MG TAB PO SCH (20:31)
[2023-08-11] MEDS: traZODone HCL 50 MG TAB PO PRN (20:31)
--- NOTE | 2023-08-12 08:03 | P.PN ---
Subjective Progress Note Date: 08/12/23 Principal diagnosis: Assessment Bipolar disorder mixed type Rule out Mood disorder related to poly substance use Polysubstance abuse Cannabis use disorder History of Methamphetamine use disorder History of cocaine use disorder History of alcohol use disorder Patient Name: Adonis Wright Date of : 89 Patient Status: Inpatient Attending Provider: Bruce Farmer Date: 08/12/23 Subjective data: The patient was seen in his room where he was laying in bed comfortably He reports that he has always had trouble with sleep and is trying to catch up Patient appears to have had minimal interaction with the staff and seems to regress in his room He denies any suicidal ideations or plans He does admit however that he uses cannabis quite heavily but here stop using the drugs He feels that his current depression was triggered by not taking his medications regularly he is compliant with his medications and denies having any side effects Mental status examination: General Appearance: Patient appears to be stated age is sleeping at this time but was arousable Patient however at this time is uninterested in having this conversation and stated that he wanted to sleep He did cooperate with signing some consent forms Behavior: Patient is calmly laying down without any agitated behavior. Speech: Patient's speech is fluent and nonpressured. Mood/Affect: Mood is flat, affect is congruent and blunted. Suicidality/Homicidality: Patient reports no suicidal or homicidal ideation, intention, and/or plan at this time Perceptions: Patient denies any visual hallucinations and denies any auditory hallucinations Though content/process: There is no evidence of any delusional thought content and thought process is linear and goal-directed. Memory and concentration: AOX3, grossly intact for the purposes of this session Judgment and insight: Impaired Assessment Bipolar disorder mixed type Rule out Mood disorder related to poly substance use Polysubstance abuse Cannabis use disorder History of Methamphetamine use disorder History of cocaine use disorder History of alcohol use disorder Plan: -Patient continues to meet criteria for inpatient psychiatric admission for symptom stabilization and safety. Patient has signed adult voluntary form and medication consent and was placed in patient's chart. -Medications: Continue patient on Zyprexa 50 mg at bedtime and Prozac 40 mg daily No side effects reported Further medication intervention will depend on patient's further assessment Discussed effects and side effects of the medication which she appears to understand well -When necessary Haldol and Ativan for agitation/aggression. -NRT - nicotine patch pt appears to be a good candidate for referral to substance use program and mental health follow-up -SW on board for discharge planning. Encouraged the patient to participate in milieu. Encouraged to participate in on the curran activities Bruce Farmer M.D. 08/11/2023 Objective - Vital Signs Vital signs: Vital Signs Temp 97.7 F 08/09/23 21:39 Pulse 64 08/09/23 21:39 Resp 18 08/09/23 21:39 BP 127/63 08/09/23 21:39 Pulse Ox 97 08/09/23 21:39 FiO2 - Labs CBC & Chem 7: 08/10/23 13:01 08/10/23 13:01
[2023-08-12] MEDS: LORazepam 1 MG TAB PO PRN (08:34)
[2023-08-12] MEDS: NICOTINE 14MG/24HR PATCH TRANSDERM SCH (13:47)
[2023-08-12] MEDS: traZODone HCL 50 MG TAB PO PRN (21:59)
[2023-08-12] MEDS: FLUoxetine HCL 20 MG CAP PO SCH (21:59)
[2023-08-12] MEDS: OLANZapine 7.5 MG TAB PO SCH (21:59)
[2023-08-13] MEDS: LORazepam 1 MG TAB PO PRN (00:49)
[2023-08-13] MEDS: NICOTINE 14MG/24HR PATCH TRANSDERM SCH (08:38)
--- NOTE | 2023-08-13 13:58 | P.PN ---
Progress Note - Text Progress Note Date: 08/13/23 Subjective data: The patient was seen today after his lunch and was agreeable to speak to bond underwriter today. he is compliant with his medications and denies having any side effects. Patient states that he feels like his anxiety is not improving. He asked about getting restarted back on Vistaril. He also claims that his sleep has not been great and had taken Ativan last night. States that the trazodone needs to be increased. states that his mood is still depressed. he claims that he is trying to go to some groups at this time. he states that his appetite is improving mildly. denies any Si or Hi at this time. he is denying any auditory hallucinations and any visual hallucinations. continues to be fixated on discharge at this time and appears to have poor insight/superficial. Mental status examination: General Appearance: Patient appears to be tall, has dreads, stated age is sleeping at this time but was arousable. Behavior: Patient is calmly sitting in chair, superficial. Speech: Patient's speech is fluent and nonpressured. concrete. Mood/Affect: Mood is "ok", affect is congruent and blunted. Suicidality/Homicidality: Patient reports no suicidal or homicidal ideation, intention, and/or plan at this time Perceptions: Patient denies any visual hallucinations and denies any auditory hallucinations Though content/process: There is no evidence of any delusional thought content and thought process is linear and goal-directed. focuised on discharge, minimizing. Memory and concentration: AOX3, grossly intact for the purposes of this session Judgment and insight: Impaired Assessment: Bipolar disorder mixed type Cannabis use disorder History of Methamphetamine use disorder History of cocaine use disorder History of alcohol use disorder Plan: -Patient continues to meet criteria for inpatient psychiatric admission for symptom stabilization and safety. Patient has signed adult voluntary form and medication consent and was placed in patient's chart. -Medications: continue Zyprexa 15 mg at bedtime for mood stabilization, d/c Prozac and replace with zoloft 50 mg daily for mood/anxiety. increase trazodone 100 mg qhs for insomnia/mood. -When necessary Haldol and Ativan for agitation/aggression. vistaril prn for anxiety -NRT - nicotine patch -SW on board for discharge planning. Encouraged the patient to participate in milieu. likely discharge in 1-2 days back home.
[2023-08-13] MEDS: SERTRALINE 50 MG TAB PO SCH (14:26)
[2023-08-13] MEDS: hydrOXYzine pamoate 25 MG CAP PO PRN ×2 (15:23→20:44)
[2023-08-13] MEDS: traZODone HCL 100 MG TAB PO SCH (20:43)
[2023-08-13] MEDS: OLANZapine 7.5 MG TAB PO SCH (20:43)
[2023-08-14 07:06] VITALS: TEMP 98.1
[2023-08-14] MEDS: SERTRALINE 50 MG TAB PO SCH (08:43)
[2023-08-14] MEDS: NICOTINE 14MG/24HR PATCH TRANSDERM SCH (08:44)
[2023-08-14] MEDS ORDERED: SIMETHICONE 80 MG CHEWABLE PO PRN (11:45)
--- NOTE | 2023-08-14 12:01 | P.PN ---
Progress Note - Text Progress Note Date: 08/14/23 Subjective data: The patient was seen today laying in his bed. He states that he was resting be cause he was feeling bored. She did not know to call was going on. He states that he feels again has more energy today. Claims that he slept better last night with the change in his medications. He claims that he is feeling like he has some tasks we spoke about [facility] [employer] option for him. He claims that his mood and anxiety even improving. She was mildly less focused today on discharge chart for was agreeable to go tomorrow. He appears to have mild improvement in his insight and judgment today. Claims that his appetite is improving. denies any Si or Hi at this time. he is denying any auditory hallucinations and any visual hallucinations. Not reporting any side effects at this time. Mental status examination: General Appearance: Patient appears to be tall, has dreads, stated age, more aw taina today. Behavior: Patient is calmly sitting in chair, superficial, improving mildly Speech: Patient's speech is fluent and nonpressured. Improving Mood/Affect: Mood is "ok", affect is congruent and improving Suicidality/Homicidality: Patient reports no suicidal or homicidal ideation, intention, and/or plan at this time Perceptions: Patient denies any visual hallucinations and denies any auditory hallucinations Though content/process: There is no evidence of any delusional thought content and thought process is linear and goal-directed. Less focused on discharge. Memory and concentration: AOX3, grossly intact for the purposes of this session Judgment and insight: Improving mildly Assessment: Bipolar disorder mixed type Cannabis use disorder History of Methamphetamine use disorder History of cocaine use disorder History of alcohol use disorder Plan: -Patient continues to meet criteria for inpatient psychiatric admission for symptom stabilization and safety. Patient has signed adult voluntary form and medication consent and was placed in patient's chart. -Medications: continue Zyprexa 15 mg at bedtime for mood stabilization, zoloft 50 mg daily for mood/anxiety. trazodone 100 mg qhs for insomnia/mood. -When necessary Haldol and Ativan for agitation/aggression. vistaril prn for anxiety -NRT - nicotine patch -SW on board for discharge planning. Encouraged the patient to participate in milieu. likely discharge back home tomorrow. SW to ensure home envt is safe and plan for d.c tomorrow.
[2023-08-14] MEDS: hydrOXYzine pamoate 25 MG CAP PO PRN ×2 (12:06→22:23)
[2023-08-14] MEDS: OLANZapine 7.5 MG TAB PO SCH (22:22)
[2023-08-14] MEDS: traZODone HCL 100 MG TAB PO SCH (22:22)
[2023-08-15 07:20] VITALS: BP 94/46; PULSE 49; RESP 16
[2023-08-15] MEDS: SERTRALINE 50 MG TAB PO SCH (08:40)
[2023-08-15] MEDS: hydrOXYzine pamoate 25 MG CAP PO PRN (08:40)
[2023-08-15] MEDS: NICOTINE 14MG/24HR PATCH TRANSDERM SCH (08:41)
--- NOTE | 2023-08-15 11:14 | P.DS ---
Providers Date of admission: 08/09/23 20:57 Expected date of discharge: 08/15/23 Attending physician: Bruce Farmer MD Consults: 08/09/23 21:03 Consult Physician Routine Consulting Provider: Cathryn Castillo Consult Reason/Comments: H&P for [facility] admission Do you want consulting provider notified?: Yes Primary care physician: Stated None - Discharge Diagnosis(es) (1) Bipolar disorder, mixed Current Visit: Yes Status: Acute Priority: High (2) Cannabis use disorder Current Visit: Yes Status: Acute Priority: Medium (3) History of methamphetamine abuse Current Visit: Yes Status: Acute Priority: Low (4) History of cocaine abuse Current Visit: Yes Status: Acute Priority: Low (5) History of alcohol abuse Current Visit: Yes Status: Acute Priority: Low (6) Nicotine dependence Current Visit: Yes Status: Acute Priority: Low Hospital Course: Admission HPI: Admission note was completed by Dr Farmer "This is a psychiatric evaluation on Adonis Wright who is a 32-year-old -[place] male and was hospitalized for suicidal ideations and severe depression Patient is a poor historian at this time continues to be wanting to sleep He responded with few monosyllabic words but otherwise is uninterested in having this conversation Patient will be reattempted to be seen for more details Meantime the further information was obtained from the chart and other resources According to the patient had presented to the physician at [facility] with depression and suicidal ideations Patient carries a diagnoses of bipolar disorder and has chronic issues with depression and anxiety Patient had presented with the mood swings poor sleep and feelings of helplessness and hopelessness psychomotor agitation and irritability and anxiety paranoia and suicidal thoughts and plans She also reports that he was in trouble with the police as he was handed some small packet by someone that he put in his pocket and was not sure what was Patient denies history of any drug use although he is positive for THC He also carries a diagnosis of from amphetamine use disorder severe cocaine use disorder severe alcohol use disorder severe from the past No legal issues been reported at this time." Hospital course: Upon admission to the unit patient was directable and agreeable to commence treatment and signed adult voluntary form . Patient got along well with other patients on the unit and followed unit protocol. Patient was compliant with the medications and denied any side effects throughout hospital course. Patient was started on Zyprexa and increase her dose of 15 mg daily at bedtime for mood stabilization/insomnia, Zoloft 50 mg daily for mood/anxiety, trazodone 100 mg daily at bedtime for insomnia/mood.. Patient spoke of his stressors and engaged in therapy both group and individual. Patient was also seen by medical team for history and physical exam. Throughout the course of the hospitalization patient gradually improved with regards to mood, anxiety, sleep and became more future oriented with improved insight and judgment. On the day of discharge patient denied any suicidal or homicidal ideations intent or plan denied any auditory or visual hallucinations. Patient endorsed wanting to live for his future and to continue working. The patient denied any access to guns or weapons. Patient denied any paranoia and did not endorse any delusions. Patient does have a significant history of substance abuse and was counseled on abstaining from all substances including alcohol and marijuana. Patient elected to do outpatient substance use treatment program through [facility]. Patient was also counseled on the medications and need for regular compliance and was encouraged to follow-up with their outpatient appointment for mental health and also for primary care. Prior to discharge a family meeting will be arranged by social psychologist to answer any questions and ensure safety upon discharge. Mental status exam: General Appearance: Patient appears to be tall, has dreads, stated age is alert, pleasant, and cooperative. Patient is in no acute distress and has improved hygiene and grooming Behavior: Patient is calmly seated without any agitated behavior. Speech: Patient's speech is fluent and nonpressured. Mood/Affect: Patient reports their mood is "better", affect is congruent and euthymic. Suicidality/Homicidality: Patient denies having any suicidal or homicidal ideation intent or plan. Perceptions: Patient denies any auditory or visual hallucinations. Though content/process: There is no evidence of any delusional thought content and thought process is linear and goal-directed. more future oriented Memory and concentration: AOX3, grossly intact for the purposes of this session. Can spell "WORLD" backwards correctly. Judgment and insight: improved with guarded prognosis Impression: Bipolar disorder, mixed Cannabis use disorder History of methamphetamine abuse History of cocaine abuse History of alcohol abuse Nicotine dependence Plan: -Continue with discharge today as patient has improved and stabilized psychiatrically and is not currently an imminent threat to himself and/or others. Patient will remain at chronically elevated risk for harm to self and/or others due to his impulsivity and substance abuse. -Continue medications: Zyprexa 15 mg daily at bedtime for mood stabilization/insomnia, Zoloft 50 mg daily for mood/psychotic, trazodone 100 mg daily at bedtime for insomnia/mood. -Patient was counseled on the need for medication compliance and appropriate follow-up at mental health and also primary care for medical issues. Patient verbalized understanding and agreed. -Social work to arrange for and conduct family meeting to ensure safety upon discharge and answer any questions/concerns. Social work also to arrange for patients follow up appointments with [facility] for psychiatric care along with follow up with primary care provider. -Patient counseled on abstaining from recreational drugs and marijuana and alcohol. Was informed/educated on the adverse effects on their physical and mental health. Patient verbally agreed and understood. -Patient was instructed to return to the hospital or seek immediate medical care if their psychiatric or medical symptoms do worsen or reoccur. Allergies Allergy/AdvReac Type Severity Reaction Status Date / Time venom-honey bee Allergy Swelling Verified 08/10/23 00:45 [bee venom (honey bee)] Laboratory Results WBC 3.9 k/uL (3.8-10.6) 08/10/23 13: RBC 5.21 m/uL (4.30-5.90) 08/10/23 13: Hgb 15.3 gm/dL (13.0-17.5) 08/10/23 13: Hct 46.9 % (39.0-53.0) 08/10/23 13: MCV 90.1 fL (80.0-100.0) 08/10/23 13: MCH 29.5 pg (25.0-35.0) 08/10/23 13: MCHC 32.7 g/dL (31.0-37.0) 08/10/23 13: RDW 13.2 % (11.5-15.5) 08/10/23 13: Plt Count 235 k/uL (150-450) 08/10/23 13: MPV 7.0 08/10/23 13: Neutrophils % 34 % 08/10/23 13: Lymphocytes % 53 % 08/10/23 13: Monocytes % 7 % 08/10/23 13:01 Eosinophils % 2 % 08/10/23 13:01 Basophils % 1 % 08/10/23 13:01 Neutrophils # 1.3 k/uL (1.3-7.7) 08/10/23 13:01 Lymphocytes # 2.1 k/uL (1.0-4.8) 08/10/23 13:01 Monocytes # 0.3 k/uL (0-1.0) 08/10/23 13:01 Eosinophils # 0.1 k/uL (0-0.7) 08/10/23 13:01 Basophils # 0.0 k/uL (0-0.2) 08/10/23 13:01 Sodium 136 mmol/L (137-145) L 08/10/23 13:01 Potassium 4.8 mmol/L (3.5-5.1) 08/10/23 13:01 Chloride 101 mmol/L (98-107) 08/10/23 13:01 Carbon Dioxide 26 mmol/L (22-30) 08/10/23 13:01 Anion Gap 9 mmol/L 08/10/23 13:01 BUN 20 mg/dL (9-20) 08/10/23 13:01 Creatinine 1.10 mg/dL (0.66-1.25) 08/10/23 13:01 Est GFR (CKD-EPI)AfAm >90 (>60 ml/min/1.73 sqM) 08/10/23 13:01 Est GFR (CKD-EPI)NonAf 89 (>60 ml/min/1.73 sqM) 08/10/23 13:01 Glucose 94 mg/dL (74-99) 08/10/23 13:[address] Glu mg/dL 114 mg/dL 08/10/23 13:01 Hemoglobin A1c 5.6 % (<=6.0) 08/10/23 13:01 Calcium 9.8 mg/dL (8.4-10.2) 08/10/23 13:01 Total Bilirubin 0.6 mg/dL (0.2-1.3) 08/10/23 13:01 AST 30 U/L (17-59) 08/10/23 13:01 ALT 23 U/L (4-49) 08/10/23 13:01 Alkaline Phosphatase 56 U/L (38-126) 08/10/23 13:01 Total Protein 7.3 g/dL (6.3-8.2) 08/10/23 13:01 Albumin 4.5 g/dL (3.5-5.0) 08/10/23 13:01 Triglycerides 90.60 mg/dL (0.00-149.00) 08/10/23 13:01 Cholesterol 155.00 mg/dL (0.00-200.00) 08/10/23 13:01 LDL Cholesterol, Calc 90.2 mg/dL (0.0-131.0) 08/10/23 13:01 VLDL Cholesterol, Calc 18.12 mg/dL (5.00-40.00) 08/10/23 13: HDL Cholesterol 46.70 mg/dL (40.00-60.00) 08/10/23 13:01 Cholesterol/HDL Ratio 3.32 Ratio 08/10/23 13: TSH 0.366 mIU/L (0.465-4.680) L 08/10/23 13: Urine Color Light Yellow 08/09/23 21:24 Urine Appearance Clear (Clear) 08/09/23 21:24 Urine pH 6.5 (5.0-8.0) 08/09/23 21:24 Ur Specific Commerce 1.019 (1.001-1.035) 08/09/23 21:24 Urine Protein Negative (Negative) 08/09/23 21:24 Urine Glucose (UA) Negative (Negative) 08/09/23 21:24 Urine Ketones Negative (Negative) 08/09/23 21:24 Urine Blood Negative (Negative) 08/09/23 21:24 Urine Nitrite Negative (Negative) 08/09/23 21:24 Urine Bilirubin Negative (Negative) 08/09/23 21:24 Urine Urobilinogen 2.0 mg/dL (<2.0) 08/09/23 21:24 Ur Leukocyte Esterase Negative (Negative) 08/09/23 21:24 Urine Opiates Screen Not Detected (NotDetected) 08/09/23 15:16 Ur Oxycodone Screen Not Detected (NotDetected) 08/09/23 15:16 Urine Methadone Screen Not Detected (NotDetected) 08/09/23 15:16 Ur Propoxyphene Screen Not Detected (NotDetected) 08/09/23 15:16 Ur Barbiturates Screen Not Detected (NotDetected) 08/09/23 15:16 U Tricyclic Antidepress Not Detected (NotDetected) 08/09/23 15:16 Ur Phencyclidine Scrn Not Detected (NotDetected) 08/09/23 15:16 Ur Amphetamines Screen Not Detected (NotDetected) 08/09/23 15:16 U Methamphetamines Scrn Not Detected (NotDetected) 08/09/23 15:16 U Benzodiazepines Scrn Not Detected (NotDetected) 08/09/23 15:16 Urine Cocaine Screen Not Detected (NotDetected) 08/09/23 15:16 U Marijuana (THC) Screen Detected (NotDetected) H 08/09/23 15:16 Coronavirus (PCR) Not Detected (Not Detectd) 08/09/23 18:32 Vital Signs Temp 98.1 F 08/15/23 06:49 Pulse 49 L 08/15/23 06:49 Resp 16 08/15/23 06:49 BP 94/46 08/15/23 06:49 Pulse Ox 97 08/09/23 21:39 FiO2 Patient Condition at Discharge: Stable Plan - Discharge Summary Discharge Rx Participant: Yes New Discharge Prescriptions: New Nicotine 14Mg/24Hr Patch [Habitrol] 1 patch TRANSDERM DAILY 14 Days #14 patch hydrOXYzine pamoate [Vistaril] 50 mg PO DAILY PRN 30 Days #60 cap PRN Reason: Anxiety Sertraline [Zoloft] 50 mg PO DAILY 30 Days #30 tab traZODone HCL [Desyrel] 100 mg PO HS PRN 30 Days #30 tab PRN Reason: Insomnia Albuterol Inhaler [Ventolin Hfa Inhaler] 2 puff INHALATION RT-Q6H PRN 30 Days #1 each PRN Reason: Shortness Of Breath Or Wheezing Continue OLANZapine [ZyPREXA] 15 mg PO HS 30 Days #30 tab Discontinued Albuterol Inhaler [Ventolin Hfa Inhaler] 1 - 2 puff INHALATION RT-Q6H PRN PRN Reason: Shortness Of Breath hydrOXYzine pamoate [Vistaril] 25 - 50 mg PO TID PRN PRN Reason: Anxiety FLUoxetine HCL [Prozac] 40 mg PO HS traZODone HCL [Desyrel] 50 mg PO HS PRN PRN Reason: Insomnia OLANZapine/FLUOXETINE HCL [Symbyax 6-25 mg Capsule] 1 cap PO HS Discharge Medication List Albuterol Inhaler [Ventolin Hfa Inhaler] 2 puff INHALATION RT-Q6H PRN 30 Days #1 each 08/15/23 [Rx] Nicotine 14Mg/24Hr Patch [Habitrol] 1 patch TRANSDERM DAILY 14 Days #14 patch 08/15/23 [Rx] OLANZapine [ZyPREXA] 15 mg PO HS 30 Days #30 tab 08/15/23 [Rx] Sertraline [Zoloft] 50 mg PO DAILY 30 Days #30 tab 08/15/23 [Rx] hydrOXYzine pamoate [Vistaril] 50 mg PO DAILY PRN 30 Days #60 cap 08/15/23 [Rx] traZODone HCL [Desyrel] 100 mg PO HS PRN 30 Days #30 tab 08/15/23 [Rx] Follow up Appointment(s)/Referral(s): [facility] [Outside] - 08/17/23 11:00 am (08/17/2023 11:00AM - 12:00PM VASU GARAY 08/28/2023 9:00AM - 10:00AM KAYLIE HASTINGS ) None,Stated [Primary Care Provider] - 1-2 days Activity/Diet/Wound Care/Special Instructions: Avoid the use of street drugs and alcohol. Take all medications as prescribed. When you are in need of refills on your medications, please contact your medical provider and/or outpatient psychiatrist/provider to have this done. Please go to your scheduled outpatient appointment for aftercare treatment. If symptoms return or become worse, call the crisis line at and/or go to the nearest emergency room for evaluation. National Suicide Hotline 508. Discharge Disposition: HOME SELF-CARE
== END 2023-08-15 12:20 | disposition home or self-care (01) | DRG 753 ==
LOC: EC 12:37 → 3MHU 20:57
PROVIDERS: ADMIT Psychiatry & Neurology Psychiatry; ATTEND Psychiatry & Neurology Psychiatry
DX: F31.60 Bipolar disorder, current episode mixed, unspecified (principal); Z20.822 Contact with and (suspected) exposure to COVID-19; Z28.310 Unvaccinated for COVID-19; Z28.21 Immunization not carried out because of patient refusal; F12.10 Cannabis abuse, uncomplicated; F15.10 Other stimulant abuse, uncomplicated; F10.11 Alcohol abuse, in remission; F14.11 Cocaine abuse, in remission; Z71.51 Drug abuse counseling and surveillance of drug abuser; Z71.41 Alcohol abuse counseling and surveillance of alcoholic; R45.851 Suicidal ideations; F17.210 Nicotine dependence, cigarettes, uncomplicated; F41.9 Anxiety disorder, unspecified; G47.00 Insomnia, unspecified; Z79.899 Other long term (current) drug therapy
CPT/HCPCS: 80053; 80061; 80306; 81003; 83036; 84443; 85025; 87635; 99285

== ENCOUNTER 2024-01-06 10:05 | Emergency (ER) | payer OTHER ==
[2024-01-06] MEDS: ACETAMINOPHEN TAB 500 MG TAB PO STA (10:21)
--- NOTE | 2024-01-06 10:21 | ED ---
General Adult HPI - General Chief complaint: Nausea/Vomiting/Diarrhea Stated complaint: Dizziness/Fever Time Seen by Provider: 01/06/24 10:13 Source: patient, RN notes reviewed Mode of arrival: ambulatory Limitations: no limitations - History of Present Illness Initial comments: 33-year-old male presents emergency department with chief complaint of fever, congestion, cough and bodyaches. Patient states symptoms started few days ago. Patient states she initially had diarrhea, nausea and vomiting. Patient states he has no ABDOMINAL pain. Denies any sick contacts he states he has minimal shortness of breath minimally productive cough. Patient has not taken recent Tylenol Motrin. - Related Data Previous Rx's Medication Instructions Recorded Albuterol Inhaler [Ventolin Hfa 2 puff INHALATION RT-Q6H PRN 30 08/15/23 Inhaler] Days #1 each Nicotine 14Mg/24Hr Patch [Habitrol] 1 patch TRANSDERM DAILY 14 Days 08/15/23 #14 patch OLANZapine [ZyPREXA] 15 mg PO HS 30 Days #30 tab 08/15/23 Sertraline [Zoloft] 50 mg PO DAILY 30 Days #30 tab 08/15/23 hydrOXYzine pamoate [Vistaril] 50 mg PO DAILY PRN 30 Days #60 cap 08/15/23 traZODone HCL [Desyrel] 100 mg PO HS PRN 30 Days #30 tab 08/15/23 Ondansetron Odt [Zofran Odt] 4 mg PO Q8HR PRN #10 tab 01/06/24 Allergies Allergy/AdvReac Type Severity Reaction Status Date / Time venom-honey bee Allergy Swelling Verified 01/06/24 10:10 [bee venom (honey bee)] Review of Systems ROS Statement: Those systems with pertinent positive or pertinent negative responses have been documented in the HPI. ROS Other: All systems not noted in ROS Statement are negative. Past Medical History Past Medical History: No Reported History, Asthma Additional Past Medical History / Comment(s): Migraines; Dizziness History of Any Multi-Drug Resistant Organisms: None Reported Past Surgical History: No Surgical Hx Reported Past Psychological History: No Psychological Hx Reported Smoking Status: Vaper Past Alcohol Use History: None Reported Past Drug Use History: None Reported General Exam Limitations: no limitations General appearance: alert, in no apparent distress Head exam: Present: atraumatic, normocephalic, normal inspection Eye exam: Present: normal appearance, PERRL, EOMI. Absent: scleral icterus, conjunctival injection, periorbital swelling ENT exam: Present: normal exam, normal oropharynx, mucous membranes moist Neck exam: Present: normal inspection, full ROM. Absent: tenderness, meningismus, lymphadenopathy Respiratory exam: Present: normal lung sounds bilaterally. Absent: respiratory distress, wheezes, rales, rhonchi, stridor Cardiovascular Exam: Present: normal rhythm, tachycardia, normal heart sounds. Absent: systolic murmur, diastolic murmur, rubs, gallop, clicks GI/Abdominal exam: Present: soft, normal bowel sounds. Absent: distended, tenderness, guarding, rebound, rigid Course Vital Signs 01/06/24 01/06/24 10:09 11:11 Temperature 103 F H 101.5 F H Pulse Rate 122 H Respiratory 24 Rate Blood Pressure 112/71 O2 Sat by Pulse 97 Oximetry Medical Decision Making - Medical Decision Making Was pt. sent in by a medical professional or institution (, PA, COMB WINDER, urgent care, hospital, or alf...) When possible be specific @ -No Did you speak to anyone other than the patient for history (EMS, parent, family, police, friend...)? What history was obtained from this source @ -No Did you review nursing and triage notes (agree or disagree)? Why? @ -I reviewed and agree with nursing and triage notes Were old charts reviewed (outside hosp., previous admission, EMS record, old EKG, old radiological studies, urgent care reports/EKG's, alf records)? Report findings @ -No old charts were reviewed Differential Diagnosis (chest pain, altered mental status, abdominal pain women, abdominal pain men, vaginal bleeding, weakness, fever, dyspnea, syncope, headache, dizziness, GI bleed, back pain, seizure, CVA, palpatations, mental health, musculoskeletal)? @ -[COVID 19, RSV, influenza, pneumonia, acute bronchitis, URI, this list is not all inclusive EKG interpreted by me (3pts min.). @ -None X-rays interpreted by me (1pt min.). @ -None done CT interpreted by me (1pt min.). @ -None done U/S interpreted by me (1pt. min.). @ -None done What testing was considered but not performed or refused? (CT, X-rays, U/S, labs)? Why? @ -None What meds were considered but not given or refused? Why? @ -None Did you discuss the management of the patient with other professionals (professionals i.e. , PA, COMB WINDER, lab, RT, psych nurse, social security assessor, mill labor supervisor, teacher, staff combat information center officer, case management rn)? Give summary @ -No Was smoking cessation discussed for >3mins.? @ -No Was critical care preformed (if so, how long)? @ -No Were there social determinants of health that impacted care today? How? (Homelessness, low income, unemployed, alcoholism, drug addiction, transportation, low edu. Level, literacy, decrease access to med. care, care home, rehab)? @ -No Was there de-escalation of care discussed even if they declined (Discuss DNR or withdrawal of care, Hospice)? DNR status @ -No What co-morbidities impacted this encounter? (DM, HTN, Smoking, COPD, CAD, Cancer, CVA, ARF, Chemo, Hep., AIDS, mental health diagnosis, sleep apnea, m orbid obesity)? @ -None Was patient admitted / discharged? Hospital course, mention meds given and route, prescriptions, significant lab abnormalities, going to OR and other pertinent info. @ -Discharge patient is influenza A positive. Patient given antiemetics, antipyretics. Symptoms have improved will be discharged in stable condition. Undiagnosed new problem with uncertain prognosis? @ -No Drug Therapy requiring intensive monitoring for toxicity (Heparin, Nitro, Insulin, Cardizem)? @ -No Were any procedures done? @ -No Diagnosis/symptom? @ -Influenza A Acute, or Chronic, or Acute on Chronic? @ -Acute Uncomplicated (without systemic symptoms) or Complicated (systemic symptoms)? @ -Uncomplicated Side effects of treatment? @ -No Exacerbation, Progression, or Severe Exacerbation? @ -No Poses a threat to life or bodily function? How? (Chest pain, [place], [place], pneumonia, PE, COPD, DKA, ARF, appy, cholecystitis, CVA, Diverticulitis, Homicidal, Suicidal, threat to staff... and all critical care pts) @ -No - Lab Data Lab Results 01/06/24 Range/Units 10:05 Influenza Type A (PCR) Detected A (Not Detectd) Influenza Type B (PCR) Not Detected (Not Detectd) RSV (PCR) Not Detected (Not Detectd) SARS-CoV-2 (PCR) Not Detected (Not Detectd) Disposition Clinical Impression: Influenza A Disposition: HOME SELF-CARE Condition: Stable Instructions (If sedation given, give patient instructions): Influenza (ED) Additional Instructions: Please return to the Emergency Department if symptoms worsen or any other concerns. Prescriptions: Ondansetron Odt [Zofran Odt] 4 mg PO Q8HR PRN #10 tab PRN Reason: Nausea Is patient prescribed a controlled substance at d/c from ED?: No Referrals: None,Stated [Primary Care Provider] - 1-2 days Time of Disposition: 11:12
[2024-01-06] MEDS: IBUPROFEN 600 MG TAB PO STA (10:22)
[2024-01-06] MEDS: ONDANSETRON ODT 4 MG TAB PO STA (10:22)
[2024-01-06 11:15] VITALS: TEMP 101.5
[2024-01-06 11:45] VITALS: BP 106/67; PULSE 102; RESP 18
== END 2024-01-06 11:25 | disposition home or self-care (01) ==
LOC: EC 10:05
DX: J10.1 Influenza due to other identified influenza virus with other respiratory manifestations (principal); J45.909 Unspecified asthma, uncomplicated; F17.290 Nicotine dependence, other tobacco product, uncomplicated; Z91.030 Bee allergy status; Z20.822 Contact with and (suspected) exposure to COVID-19
CPT/HCPCS: 87636; 99284